=== PATIENT | female | born 1990 | race Native Hawaiian/Other Pacific Islander ===

== ENCOUNTER 2018-07-25 09:54 | Emergency (ER) | payer OTHER ==
[2018-07-25] MEDS ORDERED: NS 1,000 ML IV ONE (10:09)
--- NOTE | 2018-07-25 10:14 | EDPHY ---
H & P Stated Complaint: pelvic cramping, lower back pain, x 4 days concerned that IUD is cause Time Seen by Provider: 07/25/18 09:57 HPI/ROS: CHIEF COMPLAINT: Pelvic and back pain HISTORY OF PRESENT ILLNESS: The patient presents the ED with a 4 day history of bilateral lower pelvic and back pain. The patient denies any history of fall or trauma. She denies acute numbness or weakness. The patient denies bowel or bladder dysfunction. The patient is somewhat concerned about the possibility of IUD malposition. She denies vaginal bleeding or discharge. The patient denies significant past medical history. REVIEW OF SYSTEMS: A comprehensive 10 point review of systems is otherwise negative aside from elements mentioned in the history of present illness. Source: Patient Exam Limitations: No limitations - Personal History LMP (Females 10-55): IUD In Place Current Tetanus/Diphtheria Vaccine: No Current Tetanus Diphtheria and Acellular Pertussis (TDAP): No - Medical/Surgical History Hx Asthma: No Hx Chronic Respiratory Disease: No Hx Diabetes: No Hx Cardiac Disease: No Hx Renal Disease: No Hx Cirrhosis: No Hx Alcoholism: No Hx HIV/AIDS: No Hx Splenectomy or Spleen Trauma: No Other PMH: denies - Social History Smoking Status: Never smoked - Physical Exam Exam: General Appearance: Alert, no distress Eyes: Pupils equal and round no pallor or injection ENT, Mouth: Mucous membranes moist Respiratory: There are no retractions, lungs are clear to auscultation Cardiovascular: Regular rate and rhythm Gastrointestinal: Mild lower abdominal tenderness to palpation bilaterally Neurological: A&O, normal motor function, normal sensory exam, normal cranial nerves Skin: Warm and dry, no rashes Musculoskeletal: Tenderness to palpation bilateral sacroiliac joints, right greater than left Extremities: symmetrical, full range of motion Psychiatric: Patient is oriented X 3, there is no agitation Constitutional: Initial Vital Signs Temperature (C) 36.7 C 07/25/18 09:58 Heart Rate 78 07/25/18 09:58 Respiratory Rate 16 07/25/18 09:58 Blood Pressure 108/76 07/25/18 09:58 O2 Sat (%) 98 07/25/18 09:58 O2 Delivery Mode Room Air Allergies/Adverse Reactions: amoxicillin Allergy (Verified 07/25/18 09:56) azithromycin Allergy (Verified 07/25/18 09:57) ciprofloxacin [From Cipro] Allergy (Verified 07/25/18 09:57) erythromycin base Allergy (Verified 07/25/18 09:56) metronidazole [From Flagyl] Allergy (Verified 07/25/18 09:57) penicillin G Allergy (Verified 07/25/18 09:57) Home Medications: Medication Instructions Recorded Hydrocodone/APAP 5/325 [[place] 1 - 2 each PO Q6 PRN #20 tab 07/25/18 5/325] Spironolactone 07/25/18 [place] 28 Tablet 07/25/18 Medical Decision Making - Diagnostics Imaging Results: Pelvic ultrasound: Images reviewed by myself and discussed with radiologist Dr. Tomlinson. IUD is normally positioned. Normal ovarian flow is noted bilaterally, hemorrhagic right ovarian cyst is appreciated. ED Course/Re-evaluation: The patient had a negative urine test and negative urinalysis performed at the urgent care prior to arrival. The patient did undergo an ultrasound to evaluate her IUD placement which demonstrates an intact IUD. The patient does have evidence of a hemorrhagic right ovarian cyst. The remainder of the patient's laboratory studies are unremarkable. The patient was treated with IV Toradol in the emergency department. The patient will be discharged home with instructions to follow up with gynecology regarding her ovarian cyst. The patient is advised to return to the ED sooner for markedly increasing pain or other concerns. Differential Diagnosis: Differential diagnosis considered includes ovarian torsion, ovarian cyst, IUD malfunction, ectopic , urinary tract infection - Data Points Laboratory Results: Laboratory Results 07/25/18 10:50 07/25/18 10:50 07/25/18 07/25/18 10:50 10:50 WBC 4.71 10^3/uL 10^3/uL (3.80-9.50) RBC 4.25 10^6/uL 10^6/uL (4.18-5.33) Hgb 13.8 g/dL g/dL (12.6-16.3) Hct 40.8 % % (38.0-47.0) MCV 96.0 fL fL (81.5-99.8) MCH 32.5 pg pg (27.9-34.1) MCHC 33.8 g/dL g/dL (32.4-36.7) RDW 11.3 % L % (11.5-15.2) Plt Count 235 10^3/uL 10^3/uL (150-400) MPV 9.1 fL fL (8.7-11.7) Neut % (Auto) 60.8 % % (39.3-74.2) Lymph % (Auto) 32.9 % % (15.0-45.0) [place] % (Auto) 5.1 % % (4.5-13.0) Eos % (Auto) 0.8 % % (0.6-7.6) Baso % (Auto) 0.2 % L % (0.3-1.7) Nucleat RBC Rel Count 0.0 % % (0.0-0.2) Absolute Neuts (auto) 2.86 10^3/uL 10^3/uL (1.70-6.50) Absolute Lymphs (auto) 1.55 10^3/uL 10^3/uL (1.00-3.00) Absolute Monos (auto) 0.24 10^3/uL L 10^3/uL (0.30-0.80) Absolute Eos (auto) 0.04 10^3/uL 10^3/uL (0.03-0.40) Absolute Basos (auto) 0.01 10^3/uL L 10^3/uL (0.02-0.10) Absolute Nucleated RBC 0.00 10^3/uL 10^3/uL (0-0.01) Immature Gran % 0.2 % % (0.0-1.1) Immature Gran # 0.01 10^3/uL 10^3/uL (0.00-0.10) Sodium 138 mEq/L mEq/L (135-145) Potassium 4.2 mEq/L mEq/L (3.5-5.2) Chloride 106 mEq/L mEq/L (97-110) Carbon Dioxide 23 mEq/l mEq/l (22-31) Anion Gap 9 mEq/L mEq/L (6-14) BUN 15 mg/dL mg/dL (7-23) Creatinine 0.7 mg/dL mg/dL (0.6-1.0) Estimated GFR > 60 Glucose 87 mg/dL mg/dL (70-100) Calcium 9.2 mg/dL mg/dL (8.5-10.4) Medications Given: Discontinued Medications Sodium Chloride (Ns) 1,000 mls @ 0 mls/hr IV EDNOW ONE; Wide Open PRN Reason: Protocol Stop: 07/25/18 10:10 Last Admin: 07/25/18 10:57 Dose: 1,000 mls Ketorolac Tromethamine (Toradol) 15 mg IVP EDNOW ONE Stop: 07/25/18 10:59 Last Admin: 07/25/18 10:59 Dose: 15 mg Departure - Departure Disposition: Home, Routine, Self-Care Clinical Impression: Hemorrhagic cyst of right ovary Condition: Good Instructions: Ovarian Cyst (ED) Additional Instructions: 1. Take Ibuprofen or Motrin 600 mg by mouth three times a day. 2. [place] as needed for severe pain 3. Please return to the ED for severe pain or worsening symptoms. 4. Please follow-up with your primary care provider for a recheck within the week. Referrals: Keiry Calles MD [Primary Care Provider] - As per Instructions
[2018-07-25] MEDS ORDERED: KETOROLAC 15 MG/1 ML SDV ONE (10:56)
[2018-07-25] MEDS ORDERED: KETOROLAC 15 MG/1 ML SDV IVP ONE (10:58)
[2018-07-25 11:08] LABS: PLATELET COUNT 235 10^3/uL (150-400)
[2018-07-25 12:59] VITALS: BP 110/78
== END 2018-07-25 13:00 | disposition home or self-care (01) ==
DX: N83.291 Other ovarian cyst, right side (principal); E86.9 Volume depletion, unspecified; M54.9 Dorsalgia, unspecified; Z97.5 Presence of (intrauterine) contraceptive device
CPT/HCPCS: 96374; J1885